=== PATIENT | female | born 1975 | race Caucasian/White ===

== ENCOUNTER → 2019-10-10 09:01 | Outpatient (CLI) | payer OTHER, SELFPAY ==
--- NOTE | ~2019-10-10 | MM_ITS ---
EXAMINATION: MM screening alex BI w david HISTORY: Screening mammogram TECHNIQUE: Craniocaudal and mediolateral oblique 3-D tomosynthesis images were obtained and synthetic 2-D images were generated. CAD analysis was submitted and interpreted. COMPARISON: 05/05/2018 bilateral diagnostic digital mammogram and limited left breast ultrasound 10/24/2017 diagnostic left digital mammogram and limited left breast ultrasound 04/04/2017 bilateral diagnostic digital mammogram and Limited bilateral breast ultrasound 03/22/2017 bilateral digital screening mammogram BREAST PARENCHYMAL COMPOSITION: There are scattered areas of fibroglandular density. FINDINGS: Stable fibroglandular asymmetry. There is no evidence of suspicious mass, calcification, or architectural distortion to suggest malignancy in either breast. There has been no suspicious interv al change. IMPRESSION: 1. No mammographic evidence of malignancy. 2. Recommend routine screening mammography in one year. BI-RADS Category 2: Benign finding(s). Reviewed, dictated and finalized at location A.
== END ==
PROVIDERS: PCP Internal Medicine; Visit Provider Obstetrics & Gynecology
DX: Z12.31 Encounter for screening mammogram for malignant neoplasm of breast (principal)
CPT/HCPCS: 77063; 77067

== ENCOUNTER → 2020-12-14 11:00 | Outpatient (CLI) | payer OTHER, SELFPAY ==
--- NOTE | ~2020-12-14 | MM_ITS ---
EXAMINATION: MM screening alex BI w david HISTORY: Screening TECHNIQUE: Craniocaudal and mediolateral oblique 3-D tomosynthesis images were obtained and synthetic 2-D images were generated. CAD analysis was submitted and interpreted. COMPARISON: Comparison to multiple prior studies sequentially, with oldest reviewed study dated 03/22. BREAST PARENCHYMAL COMPOSITION: There are scattered areas of fibroglandular density. FINDINGS: There is no evidence of suspicious mass, calcification, or architectural distortion to sugg est malignancy in either breast. There has been no suspicious interval change. IMPRESSION: 1. No mammographic evidence of malignancy. 2. Recommend routine screening mammography in one year. BI-RADS Category 1: Negative Reviewed, dictated and finalized at location A.
== END ==
PROVIDERS: PCP Internal Medicine; Visit Provider Internal Medicine
DX: Z12.31 Encounter for screening mammogram for malignant neoplasm of breast (principal)
CPT/HCPCS: 77063; 77067

== ENCOUNTER → 2023-04-22 10:38 | Outpatient (CLI) | payer OTHER, SELFPAY ==
--- NOTE | ~2023-04-22 | XR_ITS ---
XR knee RT min 4V 04/22/2023 11:37 Indication: Right knee pain Procedure: 4 views right knee Comparison: No prior studies for comparison. Findings: No fracture, subluxation or dislocation. No significant joint effusion. There is mild trico mpartment osteoarthritis. No foreign bodies. Impression: 1: Mild tricompartment osteoarthritis. Reviewed, dictated and finalized at location B. Impression: 1: Mild tricompartment osteoarthritis.
== END ==
PROVIDERS: PCP Internal Medicine; Visit Provider Orthopaedic Surgery
DX: M17.11 Unilateral primary osteoarthritis, right knee (principal)
CPT/HCPCS: 73564

== ENCOUNTER → 2023-08-07 10:36 | Outpatient (CLI) | payer OTHER, SELFPAY ==
--- NOTE | ~2023-08-07 | MM_ITS ---
EXAMINATION: MM screening alex BI w david HISTORY: Screening mammogram TECHNIQUE: Craniocaudal and mediolateral oblique 3-D tomosynthesis images were obtained and synthetic 2-D images were generated. CAD analysis was submitted and interpreted. COMPARISON: 12/14/2020, 10/10/2019 bilateral screening mammogram examinations BREAST PARENCHYMAL COMPOSITION: There are scattered areas of fibroglandular density. FINDINGS: There is no evidence of suspicious mass, calcification, or architectural distortion to sugg est malignancy in either breast. There has been no suspicious interval change. IMPRESSION: 1. No mammographic evidence of malignancy. 2. Recommend routine screening mammography in one year. BI-RADS Category 1: Negative Reviewed, dictated and finalized at location B. T CLEANER
== END ==
PROVIDERS: PCP Internal Medicine; Visit Provider Obstetrics & Gynecology
DX: Z12.31 Encounter for screening mammogram for malignant neoplasm of breast (principal)
CPT/HCPCS: 77063; 77067

== ENCOUNTER 2025-05-06 00:54 | Day surgery (SDC) | payer BC, SELFPAY ==
[2025-05-04 08:21] VITALS: BMI 30.9
--- NOTE | 2025-05-04 09:54 | PC.NURSE ---
Magnesium citrate prep sent to pt. Mary ordered. Pt made aware.
[2025-05-06 07:09] VITALS: BP 114/71; PULSE 85; RESP 18; TEMP 36.5; O2SAT 100; BMI 30.4
[2025-05-06 07:15] LABS: BEDSIDEPREGUCG Negative (Negative)
[2025-05-06] MEDS: LACTATED RINGERS 1,000 ML 150 ML IV CONT (07:26)
--- NOTE | 2025-05-06 07:36 | WPDANESEPPF ---
Anes - Initial Pre Proc Eval Procedure: Operation Date: 05/06/25 08:00 Proposed Procedures p Screening Colonoscopy - Derrek Ambrose MD Date/Time: 05/06/25 07:36 Surgeon: Derrek Ambrose MD Pre Op Diagnosis: Other fecal abnormalities Patient Data Age: 49 Gender: F Height: 1.75 m Weight: 93.7 kg Last Vital Signs Temp 97.7 F 05/06/25 07:09 Pulse 85 05/06/25 07:09 Resp 18 05/06/25 07:09 BP 114/71 05/06/25 07:09 Pulse Ox 100 05/06/25 07:09 O2 Del Method Room Air 05/06/25 07:09 Allergies Allergy/AdvReac Type Severity Reaction Status Date / Time cat dander Allergy Unknown UNKONWN Verified 05/06/25 07:05 dog dander Allergy Unknown UNKNOWN Verified 05/06/25 07:05 mold Allergy Unknown UNKNOWN Verified 05/06/25 07:05 peanut AdvReac Mild RASH Verified 05/06/25 07:05 corn AdvReac Unknown UNKNOWN Verified 05/06/25 07:05 tomato AdvReac Unknown UNKNOWN Verified 05/06/25 07:05 wheat AdvReac Unknown UNKNOWN Verified 05/06/25 07:05 HORSES Allergy Unknown UNKNOWN Uncoded 04/15/25 09:39 Home Medications ?Medication ?Instructions ?Recorded ?Confirmed ?Type Lactobacillus rhamnosus GG 10 1 cap PO DAILY 07/23/19 05/06/25 History billion cell capsule (Culturelle) ascorbate calcium (vitamin C) 500 500 mg PO DAILY 04/09/22 05/06/25 History mg tablet doxycycline hyclate 100 mg tablet 100 mg PO BID 04/09/22 05/06/25 History fish oil 1,000 mg .Route DAILY 04/09/22 05/06/25 History ruxolitinib 1.5 % topical cream 1 applic topical BID 04/09/22 05/06/25 History (Opzelura) cholecalciferol (vitamin D3) 50 100 mcg PO DAILY 09/10/23 05/06/25 History mcg (2,000 unit) capsule terbinafine HCl 250 mg tablet 250 mg PO DAILY 09/10/23 05/06/25 History tretinoin 0.05 % topical gel 1 applic topical QHS 09/10/23 05/06/25 History bupropion HCl 150 mg 24 hr tablet, See Rx Instructions .Route 02/02/25 05/06/25 Rx extended release .COMPLEX #90 tabs montelukast 10 mg tablet See Rx Instructions .Route 03/17/25 05/06/25 Rx .COMPLEX #90 tabs tirzepatide (weight loss) 10 10 mg (0.5 mL) subcut WEEKLY #2 mL 04/08/25 05/06/25 Rx mg/0.5 mL subcutaneous pen injector (Zepbound) pimecrolimus 1 % topical cream 1 applic topical BID PRN Alopecia 04/15/25 05/04/25 History valacyclovir 1 gram tablet 1,000 mg PO BID PRN cold sores #10 04/26/25 05/04/25 Rx tabs buspirone 10 mg tablet See Rx Instructions .Route .COMPLEX 05/04/25 05/06/25 History cetirizine 10 mg tablet (Zyrtec) 10 mg PO DAILY allergy symptoms 05/04/25 05/06/25 History hydroxychloroquine 200 mg tablet 200 mg PO DAILY 05/04/25 05/06/25 History (Plaquenil) ondansetron 4 mg disintegrating 4 mg PO Q6H PRN nausea and 05/04/25 Rx tablet vomiting #4 tabs omeprazole 20 mg capsule,delayed 20 mg PO DAILY #90 caps 05/06/25 05/06/25 Rx release Laboratory Tests 05/06/25 07:13 POC Urine HCG, Qual Negative (Negative) Patient hx anesthesia problems: none Family hx anesthesia problems: none Results Review: All pre-operative results and documents have been reviewed as part of the pre-operative evaluation. [facility] Past Medical History Medical History Encounter for weight management BMI 31.0-31.9,adult BMI 32.0-32.9,adult Pain and swelling of right knee BMI 33.0-33.9,adult BMI 34.0-34.9,adult Weight loss, intentional BMI 38.0-38.9,adult Rash Encounter for routine adult health examination with abnormal findings Onychomycosis Right knee pain Pre-diabetes Trigger finger of left thumb Asthmatic bronchitis Cough Adrenal insufficiency Follow up Seborrheic dermatitis Alopecia Skin lesion Colon cancer screening Ocular migraine Body mass index (BMI) 40.0-44.9, adult Encounter for routine adult health examination without abnormal findings Cholinergic urticaria Foot pain, bilateral Other specified abnormal findings of blood chemistry Vitamin D deficiency BMI 39.0-39.9,adult On long-term drug therapy Encounter for preventive health examination GERD (gastroesophageal reflux disease) Anxiety Eczema Surgical History Surgical History History of tonsillectomy H/O dilation and curettage Family History Family History Mother Diabetes mellitus Depression Hypertension Family history of malignant neoplasm of bone Family history of malignant neoplasm of breast in first degree relative Grandparent Hypertension Family history of malignant neoplasm Family history of lung cancer Family history of malignant neoplasm of breast Sibling Acute myocardial infarction Father Arthritis Mother Breast cancer Grandparent Lung cancer Social History Social History Smoking status: Never smoker Second hand tobacco smoke exposure: No Alcohol intake: current Drinks per week: 1 Lack of Transportation: No Lack of Food: Never True Current Housing: I Have Housing Concerned About Future Housing: No Difficulty Paying Gas/Electric Bills: No Difficulty Paying for Meds: No Currently Unemployed: No Education: Master's Degree or Higher Difficulty w/ Childcare or Family Care: No Living arrangements: with family Occupation/Education: occupation Gender identity (if verbalized by the patient): Female Spiritual care concerns: No Anes - Eval Final PreProcedure Day of Procedure 05/06/25 07:36 Patient weight: overweight Heart: regular rate and rhythm Lungs: clear to auscultation Airway: Mallampati scale class II Neurological: alert and oriented Last oral intake: >/= 8 hours ASA classification: III Emergent: no Anesthetic plan: proceed Anesthesia type and monitoring: general GIVS and standard monitoring Results Review: All pre-operative results and documents have been reviewed as part of the pre-operative evaluation. Informed Consent: The patient's anesthetic plan and its attendant risks and benefits were discussed with the patient/family/POA. Questions were solicited and answers provided to the satisfaction of the patient/family/POA.
--- NOTE | 2025-05-06 08:01 | PM.IMHP ---
H&P: HPI History of Present Illness Date/Time: 05/06/25 08:01 Chief Complaint: positive Cologuard test Narrative: This is the patient's first colonoscopy. she was recently found to be Cologuard positive. There are no GI symptoms and there is no family history of colorectal cancer. Review of Systems Review of Systems: All systems reviewed & are unremarkable except as noted in HPI and below PMFSH Past Medical History Medical History Encounter for weight management BMI 31.0-31.9,adult BMI 32.0-32.9,adult Pain and swelling of right knee BMI 33.0-33.9,adult BMI 34.0-34.9,adult Weight loss, intentional BMI 38.0-38.9,adult Rash Encounter for routine adult health examination with abnormal findings Onychomycosis Right knee pain Pre-diabetes Trigger finger of left thumb Asthmatic bronchitis Cough Adrenal insufficiency Follow up Seborrheic dermatitis Alopecia Skin lesion Colon cancer screening Ocular migraine Body mass index (BMI) 40.0-44.9, adult Encounter for routine adult health examination without abnormal findings Cholinergic urticaria Foot pain, bilateral Other specified abnormal findings of blood chemistry Vitamin D deficiency BMI 39.0-39.9,adult On extermination inspector drug therapy Encounter for preventive health examination GERD (gastroesophageal reflux disease) Anxiety Eczema Surgical History Surgical History History of tonsillectomy H/O dilation and curettage Family History Family History Mother Diabetes mellitus Depression Hypertension Family history of malignant neoplasm of bone Family history of malignant neoplasm of breast in first degree relative Grandparent Hypertension Family history of malignant neoplasm Family history of lung cancer Family history of malignant neoplasm of breast Sibling Acute myocardial infarction Father Arthritis Mother Breast cancer Grandparent Lung cancer Social History Social History Smoking status: Never smoker Second hand tobacco smoke exposure: No Alcohol intake: current Drinks per week: 1 Lack of Transportation: No Lack of Food: Never True Current Housing: I Have Housing Concerned About Future Housing: No Difficulty Paying Gas/Electric Bills: No Difficulty Paying for Meds: No Currently Unemployed: No Education: Master's Degree or Higher Difficulty w/ Childcare or Family Care: No Living arrangements: with family Occupation/Education: occupation Gender identity (if verbalized by the patient): Female Spiritual care concerns: No Meds Home Medications and Allergies Home Medications ?Medication ?Instructions ?Recorded ?Confirmed ?Type Lactobacillus rhamnosus GG 10 1 cap PO DAILY 07/23/19 05/06/25 History billion cell capsule (Culturelle) ascorbate calcium (vitamin C) 500 500 mg PO DAILY 04/09/22 05/06/25 History mg tablet doxycycline hyclate 100 mg tablet 100 mg PO BID 04/09/22 05/06/25 History fish oil 1,000 mg .Route DAILY 04/09/22 05/06/25 History ruxolitinib 1.5 % topical cream 1 applic topical BID 04/09/22 05/06/25 History (Opzelura) cholecalciferol (vitamin D3) 50 100 mcg PO DAILY 09/10/23 05/06/25 History mcg (2,000 unit) capsule terbinafine HCl 250 mg tablet 250 mg PO DAILY 09/10/23 05/06/25 History tretinoin 0.05 % topical gel 1 applic topical QHS 09/10/23 05/06/25 History bupropion HCl 150 mg 24 hr tablet, See Rx Instructions .Route 02/02/25 05/06/25 Rx extended release .COMPLEX #90 tabs montelukast 10 mg tablet See Rx Instructions .Route 03/17/25 05/06/25 Rx .COMPLEX #90 tabs tirzepatide (weight loss) 10 10 mg (0.5 mL) subcut WEEKLY #2 mL 04/08/25 05/06/25 Rx mg/0.5 mL subcutaneous pen injector (Zepbound) pimecrolimus 1 % topical cream 1 applic topical BID PRN Alopecia 04/15/25 05/04/25 History valacyclovir 1 gram tablet 1,000 mg PO BID PRN cold sores #10 04/26/25 05/04/25 Rx tabs buspirone 10 mg tablet See Rx Instructions .Route .COMPLEX 05/04/25 05/06/25 History cetirizine 10 mg tablet (Zyrtec) 10 mg PO DAILY allergy symptoms 05/04/25 05/06/25 History hydroxychloroquine 200 mg tablet 200 mg PO DAILY 05/04/25 05/06/25 History (Plaquenil) ondansetron 4 mg disintegrating 4 mg PO Q6H PRN nausea and 05/04/25 Rx tablet vomiting #4 tabs omeprazole 20 mg capsule,delayed 20 mg PO DAILY #90 caps 05/06/25 05/06/25 Rx release Allergies Allergy/AdvReac Type Severity Reaction Status Date / Time cat dander Allergy Unknown UNKONWN Verified 05/06/25 07:05 dog dander Allergy Unknown UNKNOWN Verified 05/06/25 07:05 mold Allergy Unknown UNKNOWN Verified 05/06/25 07:05 peanut AdvReac Mild RASH Verified 05/06/25 07:05 corn AdvReac Unknown UNKNOWN Verified 05/06/25 07:05 tomato AdvReac Unknown UNKNOWN Verified 05/06/25 07:05 wheat AdvReac Unknown UNKNOWN Verified 05/06/25 07:05 HORSES Allergy Unknown UNKNOWN Uncoded 04/15/25 09:39 Vital Signs Vital Signs - 24 hr 05/06/25 07:09 Temperature 97.7 F Pulse Rate 85 Respiratory Rate 18 Blood Pressure 114/71 Pulse Oximetry 100 Oxygen Delivery Room Air Exam Const: General: cooperative and healthy appearing Resp: Effort & Inspection: normal respiratory effort and able to speak in complete sentences Auscultation: clear to auscultation bilaterally Cardio: Rate: regular rate Rhythm: regular rhythm GI: Inspection: normal to inspection GI Palp: No No hepatosplenomegaly present Auscultation: normal bowel sounds Rectal Exam: deferred Skin: General skin exam: normal color Psych: Appearance: grossly normal Mental Status: mental status grossly normal Assessment and Plan Assessment and plan (1) Positive colorectal cancer screening using Cologuard test: Code(s): R19.5 - Other fecal abnormalities Status: Acute Assessment and Plan: The patient is deemed a good candidate for the procedure. Consent signed. Will proceed.
[2025-05-06 08:33] VITALS: BP 102/66; PULSE 84; RESP 16; O2SAT 100
[2025-05-06 08:43] VITALS: BP 112/74; PULSE 80; RESP 18; O2SAT 100
[2025-05-06 08:53] VITALS: BP 114/73; PULSE 75; RESP 18; O2SAT 100
== END 2025-05-06 09:03 | disposition home or self-care (01) ==
PROVIDERS: Registered Nurse; PCP Internal Medicine; Referring Provider Internal Medicine; Visit Provider Internal Medicine Gastroenterology
PROC: 0DJD8ZZ Inspection of Lower Intestinal Tract, Via Natural or Artificial Opening Endoscopic (ICD-10-PCS; CPT 45378; principal; 2025-05-06 08:00)
DX: R19.5 Other fecal abnormalities (principal); R73.03 Prediabetes; J45.909 Unspecified asthma, uncomplicated; E55.9 Vitamin D deficiency, unspecified; K21.9 Gastro-esophageal reflux disease without esophagitis; F41.9 Anxiety disorder, unspecified; E27.40 Unspecified adrenocortical insufficiency; L21.9 Seborrheic dermatitis, unspecified; L65.9 Nonscarring hair loss, unspecified; L50.5 Cholinergic urticaria; L30.9 Dermatitis, unspecified; Z79.85 Long-term (current) use of injectable non-insulin antidiabetic drugs; Z79.899 Other long term (current) drug therapy; Z98.890 Other specified postprocedural states; Z80.8 Family history of malignant neoplasm of other organs or systems; Z80.3 Family history of malignant neoplasm of breast; Z80.1 Family history of malignant neoplasm of trachea, bronchus and lung; Z82.49 Family history of ischemic heart disease and other diseases of the circulatory system
CPT/HCPCS: 45378; J2003; J2704; J7120

== ENCOUNTER 2025-06-01 13:00 | Outpatient (CLI) | payer BC, SELFPAY ==
--- NOTE | ~2025-06-01 | MM_ITS ---
EXAMINATION: MM screening alex BI w david HISTORY: Screening TECHNIQUE: Craniocaudal and mediolateral oblique 3-D tomosynthesis images were obtained and synthetic 2-D images were generated. CAD analysis was submitted and interpreted. COMPARISON: Comparison to multiple prior studies sequentially, with oldest reviewed study dated , 10/10/2019 BREAST PARENCHYMAL COMPOSITION: There are scattered areas of fibroglandular density. FINDINGS: There is no evidence of suspicious mass, calcification, or architectural distortion to suggest malignancy in either breast. IMPRESSION: 1. No mammographic evidence of malignancy. 2. Recommend routine screening mammography in one year. BI-RADS Category 1: Negative Reviewed, dictated and finalized at location B. SOFTWARE ENGINEER
== END 2025-06-01 13:01 | disposition home or self-care (01) ==
LOC: MICIMG 13:01
PROVIDERS: PCP Internal Medicine; Visit Provider Obstetrics & Gynecology
DX: Z12.31 Encounter for screening mammogram for malignant neoplasm of breast (principal)
CPT/HCPCS: 77063; 77067